=== PATIENT | female | born 1955 | race Caucasian/White ===

== ENCOUNTER 2019-05-01 17:50 | Emergency (ER) | payer OTHER ==
[~2019-05-01] VITALS: Ht 170.2 cm; Wt 86.4 kg
[2019-05-01] MEDS ORDERED: ZOCOR40 M1 PO (18:03)
[2019-05-01] MEDS ORDERED: LISINOPRIL10 MG PO (18:03)
[2019-05-01] MEDS ORDERED: K-TAB20 MEQ PO (18:03)
[2019-05-01] MEDS ORDERED: CARTRIDGE STAM1 EACH (18:04)
[2019-05-01] MEDS ORDERED: NOVOLOG 100U100 U/ML SQ (18:04)
[2019-05-01 19:15] VITALS: BP 162/89
== END 2019-05-01 19:15 | disposition home or self-care (01) ==
LOC: ED 17:50
DX: S06.0X9A Concussion with loss of consciousness of unspecified duration, initial encounter (principal); S01.91XA Laceration without foreign body of unspecified part of head, initial encounter; I10 Essential (primary) hypertension; E10.9 Type 1 diabetes mellitus without complications; Z87.891 Personal history of nicotine dependence; W01.10XA Fall on same level from slipping, tripping and stumbling with subsequent striking against unspecified object, initial encounter; Y92.009 Unspecified place in unspecified non-institutional (private) residence as the place of occurrence of the external cause
CPT/HCPCS: 90715

== ENCOUNTER → 2019-05-11 | Outpatient (CLI) | payer OTHER ==
[2019-05-01 19:15] VITALS: BP 162/89
[~2019-05-11] MED LIST: CARTRIDGE STAM1 EACH; K-TAB20 MEQ PO; LISINOPRIL10 MG PO; NOVOLOG 100U100 U/ML SQ; ZOCOR40 M1 PO
== END ==
LOC: AMSURD 12:01
DX: Z48.02 Encounter for removal of sutures (principal)

== ENCOUNTER → 2023-03-10 | Day surgery (SDC) | payer MEDICARE, OTHER | END | disposition home or self-care (01) | LOC: MSO 06:56 | DX: H25.812 Combined forms of age-related cataract, left eye (principal) | CPT/HCPCS: 00142; J0171; J2250; V2632 ==

== ENCOUNTER → 2023-04-15 | Day surgery (SDC) | payer MEDICARE, OTHER | END | disposition home or self-care (01) | LOC: MSO 06:38 | DX: E11.36 Type 2 diabetes mellitus with diabetic cataract (principal); H25.811 Combined forms of age-related cataract, right eye; Z79.4 Long term (current) use of insulin | CPT/HCPCS: 00142; J0171; J2250; V2632 ==